=== PATIENT | female | born 1955 | race Caucasian/White ===

== ENCOUNTER 2016-10-31 18:40 | Emergency (ER) | payer BC, OTHER ==
[~2016-10-31] VITALS: Ht 165.1 cm; Wt 90.0 kg
[2016-10-31 19:28] VITALS: Ht 165.1 cm; Wt 90.0 kg
[2016-10-31 21:45] LABS: BASOPHILS % 0.7 % (0.0-2.0); EOSINOPHILS # 0.1 10^3/ul (0.0-0.5); HEMATOCRIT 34.7 % (37.0-47.0); HEMOGLOBIN 11.6 g/dl (12.0-16.0); LYMPHOCYTES # 1.5 10^3/ul (0.8-2.9); LYMPHOCYTES % 34.9 % (15.0-51.0); MEAN CORPUSCULAR HEMOGLOBIN 29.4 pg (29.0-33.0); MEAN CORPUSCULAR HGB CONC 33.4 g/dl (32.0-37.0); MEAN CORPUSCULAR VOLUME 88.1 fl (82.0-101.0); MEAN PLATELET VOLUME 9.6 fl (7.4-10.4); MONOCYTE # 0.3 10^3/ul (0.3-0.9); MONOCYTES % 6.8 % (0.0-11.0); NEUTROPHILS % 54.1 % (39.0-77.0); PLATELET COUNT 185 10^3/UL (140-415); RED BLOOD COUNT 3.94 10^6/ul (4.20-5.40); RED CELL DISTRIBUTION WIDTH 12.5 % (11.5-14.5); WHITE BLOOD COUNT 4.4 10^3/ul (4.8-10.8)
[2016-10-31 22:03] LABS: INR 0.88; PROTIME 11.9 Sec (12.2-14.2); PT RATIO 0.9
[2016-10-31 22:05] LABS: ALBUMIN 4.2 g/dl (3.3-4.9); ALBUMIN/GLOBULIN RATIO 1.31; BILIRUBIN,INDIRECT 0.4 mg/dl (0-1.1); BILIRUBIN,TOTAL 0.4 mg/dl (0.2-1.3); CALCIUM 9.4 mg/dl (8.4-10.2); CREATININE 0.72 mg/dl (0.44-1.00); POTASSIUM 3.8 mmol/L (3.5-5.1); TOTAL PROTEIN 7.4 g/dl (6.1-8.1)
--- NOTE | 2016-10-31 22:15 | RADRPT ---
PROCEDURE: US Lower extremity Venous. CLINICAL INDICATION: Evaluate for DVT. TECHNIQUE: Multiple sonographic images of the bilateral lower extremity deep venous system was obt ained utilizing grayscale, color-flow, compressive sonography and doppler imaging with augmentation. The images were reviewed on a PACS workstation. COMPARISON: None. FINDINGS: There is normal compressibility and flow within the bilateral common femoral, deep femoral, superfic ial femoral and popliteal veins. The deep veins the calf were incompletely visualized. IMPRESSION: No sonographic evidence for deep venous thrombosis in the bilateral lower extremities. Physician Eliel Date Time Electronically viewed and signed by Physician Eliel on 10/31/2016 22:15 ML/
--- NOTE | 2016-10-31 22:50 | RADRPT ---
PROCEDURE: XR Left Foot. CLINICAL INDICATION: Left foot pain. TECHNIQUE: Three views. Frontal, lateral, and oblique. COMPARISON: None. FINDINGS: There is no fracture or dislocation. There is soft tissue swelling laterally. The articular surfaces are intact. There is a plantar calcaneal spur. There is no lytic or blastic lesion. There is no radiopaque foreign body. IMPRESSION: 1. Lateral soft tissue swelling. 2. Plantar calcaneal spur. 3. Otherwise unremarkable images of the left foot. RPTAT: QQ .Arvind Walls MD, MD Date Time Electronically viewed and signed by .Arvind Walls MD, MD on 10/31/2016 22:50 .R/
--- NOTE | 2016-10-31 22:52 | RADRPT ---
PROCEDURE: XR Right Foot. CLINICAL INDICATION: Right foot pain. TECHNIQUE: 3 views. Frontal, lateral, and oblique. COMPARISON: None. FINDINGS: There is diffuse soft tissue swelling and lateral soft tissue swelling. There are severe degenerative changes of the first tarsometatarsal joint and second tarsometatarsal joint. There is a healing transverse fracture of the second metatarsal base. There is no other fra cture or dislocation. There is no lytic or blastic lesion. There is no radiopaque foreign body. IMPRESSION: 1. Diffuse soft tissue swelling. 2. Severe degenerative changes of the first and second tarsometatarsal joint. 3. Healing transverse fracture of the second metatarsal base. 4. Otherwise unremarkable study. RPTAT: QQ .Arvind Walls MD, Date Time Electronically viewed and signed by .Arvind Walls MD, on 10/31/2016 22:52 .R/
--- NOTE | 2016-10-31 23:11 | ERA ---
ER Documentation Chief Complaint Date/Time DATE: 10/31/16 TIME: 23:03 Chief Complaint FOOT ULCER, BILATERAL HPI 61-year-old female with severe dementia who presents with her daughter. It appears the patient has been dull developing bilateral foot wounds at the daughter is concerned about. The patient is a diabetic. The patient cannot provide history given her severe dementia. The daughter's concern for excoriations and small blistering to the feet. She states that her mother is difficult to care for and is at an assisted living facility. No fevers or chills drainage or discharge is noted. ROS All systems reviewed and are negative except as per history of present illness. Allergies Allergies: Uncoded Allergies: SULFA (Allergy, Unknown, 10/31/16) PMhx/Soc History of Surgery: No Anesthesia Reaction: No Hx Neurological Disorder: No Hx Respiratory Disorders: No Hx Psychiatric Problems: No Hx Miscellaneous Medical Probl: Yes (dementia, diabetes) Hx Alcohol Use: No Hx Substance Use: No Hx Tobacco Use: No Smoking Status: Never smoker Physical Exam Vitals Vital Signs Date Time Temp Pulse Resp B/P Pulse Ox O2 Delivery O2 Flow Rate FiO2 10/31/16 22:16 82 17 176/83 99 10/31/16 19:28 97.7 64 18 190/88 99 Physical Exam General: Well developed, well nourished, no acute distress Head: Normocephalic, atraumatic. Eyes: Pupils equally reactive, EOM intact ENT: Moist mucous membranes Neck: Supple, no lymphadenopathy Respiratory: Lungs clear bilaterally, no distress Cardiovascular: RRR, no murmurs, rubs, or gallops Abdominal: Soft, non-tender, non-distended, no peritoneal signs : Deferred MSK: Bilateral feet with 2+ dorsalis pedis and posterior tibial pulses. Small excoriations and several small blisters noted to bilateral feet without crepitus erythema warmth or tenderness, no break in the skin, no ulcerations or wounds Neurologic: Alert and oriented to person alone which appears to be consistent with her baseline, moving all extremities, normal speech, no focal weakness, no cerebellar signs Skin: No rash, feet as documented above Psych: Normal mood Result Diagram: 10/31/16213710/31/162137 Results 24 hrs Laboratory Tests Test 10/31/16 21:38 White Blood Count 4.410^3/ul Red Blood Count 3.9410^6/ul Hemoglobin 11.6g/dl Hematocrit 34.7% Mean Corpuscular Volume 88.1fl Mean Corpuscular Hemoglobin 29.4pg Mean Corpuscular Hemoglobin Concent 33.4g/dl Red Cell Distribution Width 12.5% Platelet Count 36300^3/UL Mean Platelet Volume 9.6fl Neutrophils % 54.1% Lymphocytes % 34.9% Monocytes % 6.8% Eosinophils % 3.0% Basophils % 0.7% Nucleated Red Blood Cells % 0.0/100WBC Neutrophils # (Manual) 210^3/ul Lymphocytes # 1.510^3/ul Monocytes # 0.310^3/ul Eosinophils # 0.110^3/ul Basophils # 0.010^3/ul Nucleated Red Blood Cells # 0.010^3/ul Prothrombin Time 11.9Sec Prothrombin Time Ratio 0.9 INR International Normalized Ratio 0.88 Sodium Level 138mmol/L Potassium Level 3.8mmol/L Chloride Level 101mmol/L Carbon Dioxide Level 27mmol/L Anion Gap 14 Blood Urea Nitrogen 13mg/dl Creatinine 0.72mg/dl Glucose Level 127mg/dl Calcium Level 9.4mg/dl Total Bilirubin 0.4mg/dl Direct Bilirubin 0.00mg/dl Indirect Bilirubin 0.4mg/dl Aspartate Amino Transf (AST/SGOT) 27IU/L Alanine Aminotransferase (ALT/SGPT) 31IU/L Alkaline Phosphatase 87IU/L Total Protein 7.4g/dl Albumin 4.2g/dl Globulin 3.20g/dl Albumin/Globulin Ratio 1.31 Lipase 37U/L Procedures/MDM EKG, MONITORS, & DIAGNOSTIC IMAGING: duplex IMPRESSION: No sonographic evidence for deep venous thrombosis in the bilateral lower extremities. xr foot right IMPRESSION: 1. Lateral soft tissue swelling. 2. Plantar calcaneal spur. 3. Otherwise unremarkable images of the left foot. RPTAT: QQ Xr foot left IMPRESSION: 1. Lateral soft tissue swelling. 2. Plantar calcaneal spur. 3. Otherwise unremarkable images of the left foot. RPTAT: QQ LAB INTERPRETATION: White count of 4.4, no left shift, normal electrolytes MEDICAL DECISION MAKING: The patient does have mild excoriations and small blisters to her feet consistent with a need for improved foot care in the setting of a diabetic. However, the patient does not have any signs or symptoms concerning for necrotizing process, deep space infection, DVT, osteomyelitis or diabetic foot ulcer. I do not believe the patient requires IV antibiotics or inpatient hospitalization. ER COURSE: X-ray imaging laboratory testing and duplex are negative. I had a long conversation with the patient's daughter regarding outpatient care. I believe referral to [facility] account support manager would be appropriate. I spoke to the patient's primary care physician, Dr. Grace. He agrees with plan of care and will follow-up at the halfway facility. I kept the patient and/or family informed of laboratory and diagnostic imaging results throughout the emergency room course. DISPOSITION PLAN: We discussed follow up with the patient's primary care doctor within 24 to 48 hours as needed. We also discussed return to the emergency room for worsening symptoms or worsening condition. Outpatient referral: [facility] Discharge Medications: None required Departure Diagnosis: Primary Impression: Blister of foot Qualified Code: S90.822A - Blister of foot, left, initial encounter Additional Impression: Dementia Qualified Code: F03.90 - Dementia without behavioral disturbance, unspecified dementia type Condition: Stable Patient Instructions: Diabetic Foot Care Referrals: [facility] Additional Instructions: Follow up with her PMD and [facility]. TEJA DORSEY MD Oct 31, 2016 23:05
[2016-10-31 23:40] VITALS: BP 168/75; PULSE 73; RESP 17; TEMP 97.4
== END 2016-10-31 23:41 | disposition home or self-care (01) ==
LOC: E/R 18:40
DX: S90.822A Blister (nonthermal), left foot, initial encounter (principal); F03.90 Unspecified dementia, unspecified severity, without behavioral disturbance, psychotic disturbance, mood disturbance, and anxiety; E11.9 Type 2 diabetes mellitus without complications; X58.XXXA Exposure to other specified factors, initial encounter; Y92.9 Unspecified place or not applicable
CPT/HCPCS: 36415; 73630; 80053; 83690; 85025; 85610; 93970